=== PATIENT | female | born 1945 | race Caucasian/White ===

== ENCOUNTER 2017-11-27 06:35 | Inpatient (IN) | payer MEDICARE ==
[2017-11-26 12:26] LABS: CLARITY,URINE SLIGHTLY CLOUDY (Clear); COLOR,URINE YELLOW (Yellow); GLUCOSE, URINE NEGATIVE (Neg); KETONES,URINE NEGATIVE (Neg); LEUKOCYTE ESTERASE ,URINE LARGE (Neg); NITRITES, URINE NEGATIVE (Neg); OCCULT BLOOD,URINE SMALL (Neg); PROTEIN,URINE NEGATIVE (Neg); UROBILINOGEN,URINE 0.2 E.U/dL (0.2-1.0)
[2017-11-26 12:29] LABS: UA COLLECTION TYPE CLN CATCH MIDSTREAM
[2017-11-26 12:32] LABS: BASOPHILS % (AUTO) 0.3 % (0-1); EOSINOPHILS # (AUTO) 0.2 X10'3 (0-0.9); EOSINOPHILS % (AUTO) 3.1 % (0-6); LYMPHOCYTES # (AUTO) 1.3 X10'3 (1.1-4.8); MEAN CORPUSCULAR HEMOGLOBIN 31.3 PG (27.0-31.0); MEAN CORPUSCULAR HGB CONC 34.6 % (33.0-36.5); MEAN CORPUSCULAR VOLUME 90.5 FL (78-98); MONOCYTES # (AUTO) 0.5 X10'3 (0-0.9); MONOCYTES % (AUTO) 6.1 % (2-12); NEUTROPHILS # (AUTO) 5.7 X10'3 (1.8-7.7); NEUTROPHILS % (AUTO) 73.5 % (42-75); PRE OP HEMATOCRIT 39.9 % (35.0-45.0); PRE OP HEMOGLOBIN 13.8 g/dL (12.0-16.0); PRE OP PLATELET COUNT 229 X10'3 (140-440); RED BLOOD COUNT 4.41 X10'6 (4.20-5.60); RED CELL DISTRIBUTION WIDTH 15.7 % (11.5-14.5)
[2017-11-26 12:33] LABS: BACTERIA,URINE 4+ /HPF (Neg); RBC,URINE 0-2 /HPF (0-2); SQUAMOUS EPITHELIAL CELL,UR FEW /LPF (FEW); WBC,URINE 30-50 /HPF (0-4)
[2017-11-26 12:34] LABS: MUCUS STRANDS FEW /LPF (Neg); TRANSITIONAL EPI CELLS,URINE FEW /HPF; WBC CLUMPS,URINE FEW /HPF (NEGATIVE)
[2017-11-26 12:35] LABS: PRE OP PROTIME 10.4 SECONDS (9.0-12.0)
[2017-11-26 12:40] LABS: ALBUMIN 3.9 G/DL (3.4-5.0); ALKALINE PHOSPHATASE 89 IU/L (46-116); BLOOD UREA NITROGEN 13 MG/DL (7-18); BUN/CREATININE RATIO 15.3 (6.6-38.0); CHLORIDE 98 MMOL/L (99-107); CREATININE 0.85 MG/DL (0.40-0.90); PRE OP ALT 39 U/L (30-65); PRE OP ANION GAP 9 (8-16); PRE OP AST 26 U/L (10-37); PRE OP BILIRUB, TOTAL 1.1 MG/DL (0.0-1.0); PRE OP GLUCOSE 89 MG/DL (70-104); PRE OP POTASSIUM 4.2 MMOL/L (3.4-5.1); PRE OP SODIUM 134 MMOL/L (135-145); TOTAL CARBON DIOXIDE 27.4 MMOL/L (24-32); TOTAL PROTEIN 7.7 G/DL (6.4-8.2); eGFR 66 ML/MIN
[~2017-11-27] VITALS: Ht 167.6 cm; Wt 56.0 kg
[~2017-11-27 06:35] MED LIST: IPRA3AMP31 INH; LACTC PO; albuterol 2.5 MG/3 ML nebule NEB ONE; ceFOXitin 2 GM ADDvantage bag 100 ML IV ONE; famotidine 20mg tablet PO ONE; ringers solution, lacted 1,000 ML IV SCH
[2017-11-27] MEDS ORDERED: clindamycin phosphate 150mg/ml inj. ONE (06:43)
[2017-11-27] MEDS ORDERED: gentamicin 40 MG/1 ML inj ONE (06:43)
[2017-11-27] MEDS ORDERED: LIDOcaine 1% (10mg/ml) 2ml vial ONE (07:12)
[2017-11-27 08:02] VITALS: BP 141/80
[2017-11-27 08:05] VITALS: BP 141/80
== END 2017-11-28 00:04 | disposition home or self-care (01) | DRG 395 ==
LOC: PAS IN 06:35 → EDSTATUS 08:30
PROVIDERS: ADMIT Surgery; ATTEND Surgery
DX: K43.2 Incisional hernia without obstruction or gangrene (principal); Z53.8 Procedure and treatment not carried out for other reasons; I48.2 Chronic atrial fibrillation; I10 Essential (primary) hypertension; Z87.891 Personal history of nicotine dependence
CPT/HCPCS: 36415; 80053; 81001; 85025; 85610; 85730; 86885; 86900; 86901; 87070; 87077; 87088; 87186; 93005; J0694; J1580; J3490; J7120

== ENCOUNTER 2017-12-02 15:15 | Inpatient (IN) | payer MEDICARE ==
[~2017-12-02] VITALS: Ht 167.6 cm; Wt 57.9 kg
[~2017-12-02 15:15] MED LIST changes: -albuterol 2.5 MG/3 ML nebule NEB ONE; -ceFOXitin 2 GM ADDvantage bag 100 ML IV ONE; -famotidine 20mg tablet PO ONE; -ringers solution, lacted 1,000 ML IV SCH
[2017-12-04] VITALS (21 sets, daily range): BP systolic 139–201; BP diastolic 70–104
[2017-12-04] MEDS ORDERED: ringers solution, lacted 1,000 ML IV SCH ×2 (05:00→14:18)
[2017-12-04] MEDS ORDERED: famotidine 20mg tablet PO ONE (05:30)
[2017-12-04] MEDS ORDERED: ceFOXitin 2 GM ADDvantage bag 100 ML IV ONE (05:30)
[2017-12-04] MEDS ORDERED: albuterol 2.5 MG/3 ML nebule NEB ONE (05:30)
[2017-12-04] MEDS ORDERED: LIDOcaine 1% (10mg/ml) 2ml vial ONE (08:58)
[2017-12-04] MEDS ORDERED: clindamycin phosphate 150mg/ml inj. ONE (10:53)
[2017-12-04] MEDS ORDERED: gentamicin 40 MG/1 ML inj ONE (10:53)
[2017-12-04] MEDS ORDERED: midazolam 2 mg/2 ml injection ONE (11:19)
[2017-12-04] MEDS ORDERED: fentaNYL /PF 50mcg/ml 5ml ampule ONE (11:19)
[2017-12-04] MEDS ORDERED: LIDOcaine 2% (20mg/ml) 5ml vial ONE (11:21)
[2017-12-04] MEDS ORDERED: propofol inj 20 ML IV ONE (11:21)
[2017-12-04] MEDS ORDERED: cloNIDine hcl/PF 100mcg/ml inj ONE (11:23)
[2017-12-04] MEDS ORDERED: BUPIVAcaine/PF 2.5mg/ml (0.25%) 10ml vial ONE (11:24)
[2017-12-04] MEDS ORDERED: dexamethasone sod phosphate 4mg/ml inj. ONE (11:28)
[2017-12-04] MEDS ORDERED: sevoflurane 250ml liquid IH ONE (11:37)
[2017-12-04] MEDS ORDERED: [UNRECOGNIZED DRUG - OTHER] IV ONE (11:37)
[2017-12-04] MEDS ORDERED: DEXTRAN IV ONE (11:37)
[2017-12-04] MEDS ORDERED: morphine 4 MG/ML inj SYRINge IV PRN (14:20)
[2017-12-04] MEDS ORDERED: HYDROmorphone inj. 0.5 MG/0.5 ML DISP.SYRIN IV PRN ×2 (14:20)
[2017-12-04] MEDS ORDERED: ondansetron/PF 4mg/2ml inj IV PRN (14:20)
[2017-12-04] MEDS ORDERED: HYDROmorphone 1 mg/ml syringe ONE (14:25)
[2017-12-04] MEDS ORDERED: acetaminophen 1,000mg/100ml IV 100 ML IV ONE (14:38)
[2017-12-04] MEDS ORDERED: ondansetron/PF 4mg/2ml inj ONE (14:57)
[2017-12-04] MEDS ORDERED: neostigmine methylsulfate 1 MG/ML 10ml vial ONE (14:57)
[2017-12-04] MEDS ORDERED: glycopyrrolate 0.2mg/ml inj ONE (14:57)
[2017-12-04] MEDS ORDERED: hydrALAZINE 20mg/ml inj. IV ONE (15:00)
[2017-12-04] MEDS: ceFAZolin inj. 1,000 MG in dextrose 5%-water 50ml 50 ML IV SCH ×2 (17:37→23:26)
[2017-12-04] MEDS: HYDROmorphone 1 mg/ml syringe IV PRN ×2 (17:39→21:59)
[2017-12-04] MEDS: Potassium Cl inj 20 MEQ in ringers solution, lacted 1,000 ML IV SCH (19:52)
[2017-12-04] MEDS: clindamycin 600mg/D5W 50ml 50 ML IV SCH (19:53)
[2017-12-05] VITALS: BP 166/83
[2017-12-05] MEDS: clindamycin 600mg/D5W 50ml 50 ML IV SCH ×4 (01:41→19:29)
[2017-12-05] MEDS: HYDROmorphone 1 mg/ml syringe IV PRN ×5 (02:39→20:58)
[2017-12-05 04:00] VITALS: BP 149/69
[2017-12-05] MEDS: Potassium Cl inj 20 MEQ in ringers solution, lacted 1,000 ML IV SCH ×3 (05:20→23:48)
[2017-12-05 05:59] LABS: BASOPHILS % (AUTO) 0.1 % (0-1); EOSINOPHILS # (AUTO) 0.1 X10'3 (0-0.9); EOSINOPHILS % (AUTO) 0.8 % (0-6); HEMATOCRIT 38.1 % (35.0-45.0); HEMOGLOBIN 12.9 g/dl (12.0-16.0); LYMPHOCYTES # (AUTO) 1.4 X10'3 (1.1-4.8); LYMPHOCYTES % (AUTO) 13.1 % (21-51); MEAN CORPUSCULAR HGB CONC 33.9 % (33.0-36.5); MEAN CORPUSCULAR VOLUME 91.4 FL (78-98); MEAN PLATELET VOLUME 6.9 FL (7.4-10.4); MONOCYTES # (AUTO) 0.5 X10'3 (0-0.9); MONOCYTES % (AUTO) 4.8 % (2-12); NEUTROPHILS # (AUTO) 8.4 X10'3 (1.8-7.7); NEUTROPHILS % (AUTO) 81.2 % (42-75); PLATELET COUNT 220 X10'3 (140-440); RED BLOOD COUNT 4.17 X10'6 (4.20-5.60); RED CELL DISTRIBUTION WIDTH 15.4 % (11.5-14.5); WHITE BLOOD COUNT 10.4 X10'3 (4.5-11.0)
[2017-12-05 06:04] LABS: ANION GAP 7 (8-16); BLOOD UREA NITROGEN 8 MG/DL (7-18); BUN/CREATININE RATIO 11.6 (6.6-38.0); CALCIUM 8.4 MG/DL (8.5-10.1); CHLORIDE 101 MMOL/L (99-107); CREATININE 0.69 MG/DL (0.40-0.90); GLUCOSE 118 MG/DL (70-104); POTASSIUM 4.3 MMOL/L (3.5-5.1); SODIUM 133 MMOL/L (135-145); TOTAL CARBON DIOXIDE 25.2 MMOL/L (24-32); eGFR 84 ML/MIN
[2017-12-05 07:11] VITALS: BP 143/72
[2017-12-05 11:53] VITALS: BP 129/68
[2017-12-05 20:00] VITALS: BP 153/76
[2017-12-05] MEDS: ondansetron/PF 4mg/2ml inj IV PRN (21:04)
[2017-12-05] MEDS ORDERED: HYDROmorphone/NS 1 mg/ml CADD 50 ML IV SCH (21:40)
[2017-12-05] MEDS ORDERED: naloxone 0.4 mg/ml inj IV PRN (21:45)
[2017-12-05] MEDS: HYDROmorphone/NS 1 mg/ml CADD 50 ML IV SCH (23:56)
[2017-12-06] VITALS: BP 169/81
[2017-12-06] MEDS: HYDROmorphone/NS 1 mg/ml CADD 50 ML IV SCH ×11 (01:00→23:00)
[2017-12-06] MEDS: clindamycin 600mg/D5W 50ml 50 ML IV SCH ×4 (01:12→19:29)
[2017-12-06 05:12] LABS: BASOPHILS % (AUTO) 0.3 % (0-1); EOSINOPHILS # (AUTO) 0.2 X10'3 (0-0.9); EOSINOPHILS % (AUTO) 1.6 % (0-6); HEMATOCRIT 35.7 % (35.0-45.0); HEMOGLOBIN 12.1 g/dl (12.0-16.0); LYMPHOCYTES # (AUTO) 1.2 X10'3 (1.1-4.8); LYMPHOCYTES % (AUTO) 11.8 % (21-51); MEAN CORPUSCULAR HGB CONC 33.8 % (33.0-36.5); MEAN CORPUSCULAR VOLUME 91.8 FL (78-98); MONOCYTES # (AUTO) 0.7 X10'3 (0-0.9); MONOCYTES % (AUTO) 6.8 % (2-12); NEUTROPHILS # (AUTO) 8.4 X10'3 (1.8-7.7); NEUTROPHILS % (AUTO) 79.5 % (42-75); PLATELET COUNT 215 X10'3 (140-440); RED BLOOD COUNT 3.89 X10'6 (4.20-5.60); RED CELL DISTRIBUTION WIDTH 15.6 % (11.5-14.5); WHITE BLOOD COUNT 10.5 X10'3 (4.5-11.0)
[2017-12-06 05:41] LABS: ALBUMIN 2.6 G/DL (3.4-5.0); ANION GAP 7 (8-16); BLOOD UREA NITROGEN 6 MG/DL (7-18); BUN/CREATININE RATIO 9.4 (6.6-38.0); CALCIUM 8.3 MG/DL (8.5-10.1); CHLORIDE 99 MMOL/L (99-107); CREATININE 0.64 MG/DL (0.40-0.90); GLUCOSE 97 MG/DL (70-104); POTASSIUM 4.1 MMOL/L (3.5-5.1); SODIUM 133 MMOL/L (135-145); TOTAL CARBON DIOXIDE 27.1 MMOL/L (24-32); eGFR > 90 ML/MIN
[2017-12-06 07:00] VITALS: BP 152/86
[2017-12-06] MEDS: Potassium Cl inj 20 MEQ in ringers solution, lacted 1,000 ML IV SCH (09:26)
[2017-12-06] MEDS: ondansetron/PF 4mg/2ml inj IV PRN ×2 (11:50→21:06)
[2017-12-06 12:00] VITALS: BP 151/100
[2017-12-06] MEDS: potassium CL 20mEq in D5-1/2NS 1,000 ML IV SCH (17:51)
[2017-12-06 18:00] VITALS: BP 189/88
[2017-12-06] MEDS: hydrALAZINE 20mg/ml inj. IV PRN (19:29)
[2017-12-06 20:30] VITALS: BP 153/79
[2017-12-06] MEDS: benzocaine/menthol oral lozeng 1 EACH BOX MM PRN ×2 (20:31→22:04)
[2017-12-07] VITALS: BP 158/82
[2017-12-07] MEDS: benzocaine/menthol oral lozeng 1 EACH BOX MM PRN ×3 (00:18→21:08)
[2017-12-07] MEDS: HYDROmorphone/NS 1 mg/ml CADD 50 ML IV SCH ×6 (01:00→11:00)
[2017-12-07] MEDS: clindamycin 600mg/D5W 50ml 50 ML IV SCH ×5 (01:29→19:19)
[2017-12-07] MEDS: potassium CL 20mEq in D5-1/2NS 1,000 ML IV SCH (03:48)
[2017-12-07 05:12] LABS: BASOPHILS % (AUTO) 0.3 % (0-1); EOSINOPHILS # (AUTO) 0.2 X10'3 (0-0.9); EOSINOPHILS % (AUTO) 1.4 % (0-6); HEMATOCRIT 37.1 % (35.0-45.0); HEMOGLOBIN 12.4 g/dl (12.0-16.0); LYMPHOCYTES # (AUTO) 1.3 X10'3 (1.1-4.8); LYMPHOCYTES % (AUTO) 11.4 % (21-51); MEAN CORPUSCULAR HGB CONC 33.4 % (33.0-36.5); MEAN CORPUSCULAR VOLUME 92.8 FL (78-98); MEAN PLATELET VOLUME 7.2 FL (7.4-10.4); MONOCYTES # (AUTO) 0.9 X10'3 (0-0.9); MONOCYTES % (AUTO) 7.9 % (2-12); NEUTROPHILS # (AUTO) 9.1 X10'3 (1.8-7.7); PLATELET COUNT 214 X10'3 (140-440); RED CELL DISTRIBUTION WIDTH 15.5 % (11.5-14.5); WHITE BLOOD COUNT 11.5 X10'3 (4.5-11.0)
[2017-12-07 05:34] LABS: ALBUMIN 2.5 G/DL (3.4-5.0); ANION GAP 3 (8-16); BLOOD UREA NITROGEN 4 MG/DL (7-18); BUN/CREATININE RATIO 6.6 (6.6-38.0); CALCIUM 8.2 MG/DL (8.5-10.1); CHLORIDE 95 MMOL/L (99-107); CREATININE 0.61 MG/DL (0.40-0.90); GLUCOSE 116 MG/DL (70-104); POTASSIUM 3.6 MMOL/L (3.5-5.1); SODIUM 129 MMOL/L (135-145); TOTAL CARBON DIOXIDE 30.6 MMOL/L (24-32); eGFR > 90 ML/MIN
[2017-12-07 07:00] VITALS: BP 191/91
[2017-12-07] MEDS: hydrALAZINE 20mg/ml inj. IV PRN (07:39)
[2017-12-07] MEDS: ondansetron/PF 4mg/2ml inj IV PRN (08:16)
[2017-12-07 10:07] VITALS: BP 147/75
[2017-12-07 11:30] VITALS: BP 137/69
[2017-12-07] MEDS ORDERED: ketorolac tromethamine 15mg/ml inj. IV ONE (11:30)
[2017-12-07] MEDS: ketorolac tromethamine 15mg/ml inj. IV SCH ×3 (11:30→19:19)
[2017-12-07] MEDS: potassium Cl 20mEq in D5-NS 1,000 ML IV SCH ×2 (12:07→19:55)
[2017-12-07] MEDS: fentaNYL 10MCG/ML in NS 50ML 50 ML IV SCH ×4 (12:44→18:57)
[2017-12-07] MEDS: CADD PCA waste documentation MC SCH (12:48)
[2017-12-07] MEDS ORDERED: clindamycin 600mg/D5W 50ml 50 ML IV ONE (15:00)
[2017-12-07] MEDS ORDERED: FENTANYL IV SCH (15:00)
[2017-12-07] MEDS ORDERED: [UNRECOGNIZED DRUG - OTHER] IV SCH (15:00)
[2017-12-07] MEDS ORDERED: proMETHazine 25mg rectal suppository RC PRN (15:05)
[2017-12-07] MEDS ORDERED: methylnaltrexone br 12mg/0.6ml inj***SubQ only SQ ONE (15:10)
[2017-12-07 18:00] VITALS: BP 158/86
[2017-12-07 23:57] VITALS: BP 153/72
[2017-12-08] MEDS: fentaNYL 10MCG/ML in NS 50ML 50 ML IV SCH ×10 (00:21→22:39)
[2017-12-08] MEDS: CADD PCA waste documentation MC SCH ×2 (00:40→14:18)
[2017-12-08] MEDS: clindamycin 600mg/D5W 50ml 50 ML IV SCH ×4 (01:49→21:06)
[2017-12-08] MEDS: ketorolac tromethamine 15mg/ml inj. IV SCH ×4 (01:54→21:05)
[2017-12-08 05:28] LABS: BASOPHILS % (AUTO) 0.2 % (0-1); EOSINOPHILS # (AUTO) 0.3 X10'3 (0-0.9); HEMATOCRIT 32.1 % (35.0-45.0); HEMOGLOBIN 10.7 g/dl (12.0-16.0); LYMPHOCYTES # (AUTO) 0.9 X10'3 (1.1-4.8); LYMPHOCYTES % (AUTO) 8.6 % (21-51); MEAN CORPUSCULAR HEMOGLOBIN 30.7 PG (27.0-31.0); MEAN CORPUSCULAR HGB CONC 33.4 % (33.0-36.5); MEAN CORPUSCULAR VOLUME 91.9 FL (78-98); MEAN PLATELET VOLUME 7.2 FL (7.4-10.4); MONOCYTES # (AUTO) 0.6 X10'3 (0-0.9); MONOCYTES % (AUTO) 6.3 % (2-12); NEUTROPHILS # (AUTO) 8.1 X10'3 (1.8-7.7); NEUTROPHILS % (AUTO) 81.9 % (42-75); PLATELET COUNT 212 X10'3 (140-440); RED CELL DISTRIBUTION WIDTH 15.4 % (11.5-14.5); WHITE BLOOD COUNT 9.9 X10'3 (4.5-11.0)
[2017-12-08 05:42] LABS: ALBUMIN 2.3 G/DL (3.4-5.0); ANION GAP 5 (8-16); BLOOD UREA NITROGEN 8 MG/DL (7-18); BUN/CREATININE RATIO 12.3 (6.6-38.0); CALCIUM 7.9 MG/DL (8.5-10.1); CHLORIDE 100 MMOL/L (99-107); CREATININE 0.65 MG/DL (0.40-0.90); GLUCOSE 124 MG/DL (70-104); POTASSIUM 3.4 MMOL/L (3.5-5.1); SODIUM 133 MMOL/L (135-145); TOTAL CARBON DIOXIDE 28.5 MMOL/L (24-32); eGFR 90 ML/MIN
[2017-12-08] MEDS: potassium Cl 20mEq in D5-NS 1,000 ML IV SCH ×2 (07:19→17:01)
[2017-12-08 07:31] VITALS: BP 150/80
[2017-12-08 11:51] VITALS: BP 152/68
[2017-12-08 18:45] VITALS: BP 193/91
[2017-12-08] MEDS: hydrALAZINE 20mg/ml inj. IV PRN (19:18)
[2017-12-08] MEDS ORDERED: magnesium 1gm/100ml D5W IVPB 100 ML IV PRN (19:40)
[2017-12-08] MEDS ORDERED: magnesium 4gm in 100ml NS 100 ML IV PRN (19:40)
[2017-12-08] MEDS ORDERED: potassium Cl 20 mEq SR tablet PO PRN ×2 (19:40)
[2017-12-08] MEDS ORDERED: potassium Cl 40MEQ/NS 500ml 500 ML IV PRN ×2 (19:40)
[2017-12-08] MEDS ORDERED: magnesium Cl slow-release 64mg tablet PO PRN (19:40)
[2017-12-08] MEDS ORDERED: metoclopramide 5 mg/ml inj IV SCH (20:00)
[2017-12-08] MEDS: metoclopramide 5 mg/ml inj IV SCH (21:06)
[2017-12-08 23:00] VITALS: BP 136/76
[2017-12-09] MEDS: fentaNYL 10MCG/ML in NS 50ML 50 ML IV SCH ×3 (01:00→04:28)
[2017-12-09] MEDS: ketorolac tromethamine 15mg/ml inj. IV SCH ×2 (01:42→07:26)
[2017-12-09] MEDS: metoclopramide 5 mg/ml inj IV SCH ×4 (01:42→20:45)
[2017-12-09] MEDS: clindamycin 600mg/D5W 50ml 50 ML IV SCH ×4 (01:43→20:45)
[2017-12-09] MEDS: potassium Cl 20mEq in D5-NS 1,000 ML IV SCH (01:47)
[2017-12-09] MEDS: CADD PCA waste documentation MC SCH ×2 (04:22→11:02)
[2017-12-09 05:25] LABS: BASOPHILS % (AUTO) 0.3 % (0-1); EOSINOPHILS # (AUTO) 0.3 X10'3 (0-0.9); EOSINOPHILS % (AUTO) 4.6 % (0-6); HEMATOCRIT 29.4 % (35.0-45.0); HEMOGLOBIN 9.9 g/dl (12.0-16.0); LYMPHOCYTES # (AUTO) 0.9 X10'3 (1.1-4.8); LYMPHOCYTES % (AUTO) 12.2 % (21-51); MEAN CORPUSCULAR HGB CONC 33.8 % (33.0-36.5); MEAN CORPUSCULAR VOLUME 91.6 FL (78-98); MONOCYTES # (AUTO) 0.6 X10'3 (0-0.9); MONOCYTES % (AUTO) 7.7 % (2-12); NEUTROPHILS # (AUTO) 5.7 X10'3 (1.8-7.7); NEUTROPHILS % (AUTO) 75.2 % (42-75); PLATELET COUNT 212 X10'3 (140-440); RED BLOOD COUNT 3.21 X10'6 (4.20-5.60); RED CELL DISTRIBUTION WIDTH 15.4 % (11.5-14.5); WHITE BLOOD COUNT 7.6 X10'3 (4.5-11.0)
[2017-12-09 05:48] LABS: ALBUMIN 2.2 G/DL (3.4-5.0); ANION GAP 7 (8-16); BLOOD UREA NITROGEN 7 MG/DL (7-18); BUN/CREATININE RATIO 11.3 (6.6-38.0); CALCIUM 7.9 MG/DL (8.5-10.1); CHLORIDE 106 MMOL/L (99-107); CREATININE 0.62 MG/DL (0.40-0.90); GLUCOSE 114 MG/DL (70-104); MAGNESIUM 1.5 MG/DL (1.5-2.4); POTASSIUM 4.2 MMOL/L (3.5-5.1); SODIUM 138 MMOL/L (135-145); TOTAL CARBON DIOXIDE 25.2 MMOL/L (24-32); eGFR > 90 ML/MIN
[2017-12-09 07:22] VITALS: BP 161/96
[2017-12-09] MEDS: enoxaparin 40mg/0.4ml syringe SUBCUT SCH (07:26)
[2017-12-09] MEDS ORDERED: HYDROcodone/acetaminophen 10/325mg tab PO PRN (10:35)
[2017-12-09 11:15] VITALS: BP 148/81
[2017-12-09] MEDS: hydrALAZINE 20mg/ml inj. IV PRN (18:51)
[2017-12-09 20:00] VITALS: BP 183/78
[2017-12-09] MEDS: HYDROcodone/acetaminophen 10/325mg tab PO PRN (20:44)
[2017-12-09] MEDS: benzocaine/menthol oral lozeng 1 EACH BOX MM PRN (20:44)
[2017-12-09] MEDS: diphenhydrAMINE 25mg capsule PO PRN (20:45)
[2017-12-10] VITALS: BP 183/85
[2017-12-10] MEDS: hydrALAZINE 20mg/ml inj. IV PRN (00:05)
[2017-12-10] MEDS: benzocaine/menthol oral lozeng 1 EACH BOX MM PRN (00:40)
[2017-12-10] MEDS: diphenhydrAMINE 25mg capsule PO PRN ×2 (02:16→08:28)
[2017-12-10] MEDS: metoclopramide 5 mg/ml inj IV SCH ×3 (02:16→14:00)
[2017-12-10] MEDS: clindamycin 600mg/D5W 50ml 50 ML IV SCH ×3 (02:16→14:00)
[2017-12-10] MEDS: HYDROcodone/acetaminophen 10/325mg tab PO PRN ×2 (02:19→08:05)
[2017-12-10 05:09] LABS: MAGNESIUM 1.3 MG/DL (1.5-2.4); POTASSIUM 3.5 MMOL/L (3.5-5.1)
[2017-12-10 07:22] VITALS: BP 149/65
[2017-12-10] MEDS: enoxaparin 40mg/0.4ml syringe SUBCUT SCH (08:06)
[2017-12-10] MEDS ORDERED: HYDR-565 PO (11:27)
[2017-12-10] MEDS ORDERED: CLIN300C3 PO (11:27)
[2017-12-10 12:00] VITALS: BP 151/73
== END 2017-12-10 14:38 | disposition home or self-care (01) | DRG 354 ==
LOC: EDSTATUS 15:15 → PAS IN 12-04 08:43 → SUR 3N 12-04 15:46
PROVIDERS: ADMIT Surgery; ATTEND Surgery
PROC: 3E0T3BZ Introduction of Anesthetic Agent into Peripheral Nerves and Plexi, Percutaneous Approach (ICD-10-PCS; 2017-12-04)
PROC: 0JN80ZZ Release Abdomen Subcutaneous Tissue and Fascia, Open Approach (ICD-10-PCS; 2017-12-04)
PROC: 0WUF0JZ Supplement Abdominal Wall with Synthetic Substitute, Open Approach (ICD-10-PCS; principal; 2017-12-04 11:37)
DX: K43.2 Incisional hernia without obstruction or gangrene (principal); E87.1 Hypo-osmolality and hyponatremia; K56.7 Ileus, unspecified; K66.0 Peritoneal adhesions (postprocedural) (postinfection); J44.9 Chronic obstructive pulmonary disease, unspecified; I10 Essential (primary) hypertension; Z90.49 Acquired absence of other specified parts of digestive tract; Z85.828 Personal history of other malignant neoplasm of skin; Z90.710 Acquired absence of both cervix and uterus
CPT/HCPCS: 36415; 80048; 83735; 84132; 85025; 86885; 86900; 86901; 88302; 94640; A6212; A6213; A6222; A6251; A6258; A6446; A7000; C1758; C1781; J0131; J0360; J0690; J0694; J0735; J1100; J1170; J1580; J1650; J1885; J2001; J2250; J2270; J2405; J2704; J2710; J2765; J3010; J3480; J3490; J7060; J7100; J7120; Q0163

== ENCOUNTER 2018-02-09 17:14 | Inpatient (IN) | payer MEDICARE ==
[~2018-02-09] VITALS: Ht 167.6 cm; Wt 51.0 kg
[2018-02-09 17:38] LABS: BASOPHILS # (AUTO) 0.1 X10'3 (0-0.2); BASOPHILS % (AUTO) 0.8 % (0-1); EOSINOPHILS # (AUTO) 0.3 X10'3 (0-0.9); EOSINOPHILS % (AUTO) 4.3 % (0-6); HEMATOCRIT 36.2 % (35.0-45.0); HEMOGLOBIN 12.7 g/dl (12.0-16.0); LYMPHOCYTES # (AUTO) 1.9 X10'3 (1.1-4.8); LYMPHOCYTES % (AUTO) 30.2 % (21-51); MEAN CORPUSCULAR HEMOGLOBIN 32.1 PG (27.0-31.0); MEAN CORPUSCULAR VOLUME 91.8 FL (78-98); MONOCYTES # (AUTO) 0.5 X10'3 (0-0.9); MONOCYTES % (AUTO) 8.7 % (2-12); NEUTROPHILS # (AUTO) 3.5 X10'3 (1.8-7.7); PLATELET COUNT 250 X10'3 (140-440); RED BLOOD COUNT 3.94 X10'6 (4.20-5.60); RED CELL DISTRIBUTION WIDTH 14.5 % (11.5-14.5); WHITE BLOOD COUNT 6.3 X10'3 (4.5-11.0)
[2018-02-09 17:47] LABS: PARTIAL THROMBOPLASTIN TIME 25 SECONDS (22-32); PROTHROMBIN TIME 10.2 SECONDS (9.0-12.0)
[2018-02-09 17:59] LABS: CLARITY,URINE CLEAR (Clear); COLOR,URINE STRAW (Yellow); GLUCOSE, URINE NEGATIVE (Neg); KETONES,URINE NEGATIVE (Neg); LEUKOCYTE ESTERASE ,URINE NEGATIVE (Neg); NITRITES, URINE NEGATIVE (Neg); OCCULT BLOOD,URINE NEGATIVE (Neg); PROTEIN,URINE NEGATIVE (Neg); UROBILINOGEN,URINE 0.2 E.U/dL (0.2-1.0)
[2018-02-09 18:01] LABS: UA COLLECTION TYPE CLN CATCH MIDSTREAM
[2018-02-09 18:07] LABS: ALANINE AMINOTRANSFERASE 29 U/L (12-78); ALBUMIN 4.1 G/DL (3.4-5.0); ALBUMIN/GLOBULIN RATIO 1.2 (1.1-1.5); ALKALINE PHOSPHATASE 81 IU/L (46-116); ANION GAP 9 (8-16); ASPARTATE AMINO TRANSFERASE 21 U/L (10-37); BILIRUBIN,TOTAL 0.9 MG/DL (0.1-1.0); BLOOD UREA NITROGEN 14 MG/DL (7-18); BUN/CREATININE RATIO 17.3 (6.6-38.0); CALCIUM 8.9 MG/DL (8.5-10.1); CHLORIDE 98 MMOL/L (99-107); CREATININE 0.81 MG/DL (0.40-0.90); GLUCOSE 92 MG/DL (70-104); POTASSIUM 4.5 MMOL/L (3.5-5.1); SODIUM 136 MMOL/L (135-145); TOTAL CARBON DIOXIDE 28.6 MMOL/L (24-32); TOTAL PROTEIN 7.6 G/DL (6.4-8.2); eGFR 70 ML/MIN
[2018-02-09 18:16] LABS: MAGNESIUM 1.9 MG/DL (1.5-2.4); PHOSPHORUS 3.5 MG/DL (2.3-4.5)
[2018-02-09] MEDS ORDERED: atorvastatin 20mg tablet PO ONE (18:50)
[2018-02-09] MEDS ORDERED: aspirin 325mg tablet PO ONE (18:50)
[2018-02-09] MEDS ORDERED: aspirin 81mg tab.chew PO ONE (18:55)
[2018-02-09] MEDS ORDERED: mag hydrox/Alum hydrox/simeth 30ml oral suspension PO PRN (19:35)
[2018-02-09] MEDS ORDERED: acetaminophen 325mg tablet PO PRN (19:35)
[2018-02-09] MEDS ORDERED: magnesium hydroxide 30ml (MOM) UD suspension PO PRN (19:35)
[2018-02-09] MEDS: heparin, porcine 5000 units/ml vial SQ SCH (20:33)
[2018-02-09 20:45] VITALS: BP 195/92
[2018-02-09] MEDS: metroNIDAZOLE 500mg tablet PO SCH (21:07)
[2018-02-09] MEDS: levoFLOXACIN 250mg tablet PO SCH (21:07)
[2018-02-10] VITALS (7 sets, daily range): BP systolic 124–211; BP diastolic 66–107
[2018-02-10] MEDS: HYDROcodone/acetaminophen 5mg/325mg tablet PO PRN ×2 (00:06→05:17)
[2018-02-10] MEDS: hydrALAZINE 20mg/ml inj. IV PRN ×3 (00:09→23:31)
[2018-02-10] MEDS: ondansetron/PF 4mg/2ml inj IV PRN ×4 (02:16→20:39)
[2018-02-10 06:18] LABS: CHOL/HDL RATIO 1.8 (0.00-4.99); CHOLESTEROL 198 MG/DL (0-200); HDL CHOLESTEROL 110 MG/DL (35-60); LDL CHOLESTEROL 71 MG/DL (50-100); TRIGLYCERIDES 48 MG/DL (20-135)
[2018-02-10] MEDS ORDERED: aspirin 81mg tablet.DR PO SCH (08:00)
[2018-02-10] MEDS: metroNIDAZOLE 500mg tablet PO SCH ×3 (08:05→21:00)
[2018-02-10] MEDS: heparin, porcine 5000 units/ml vial SQ SCH ×2 (08:07→20:00)
[2018-02-10] MEDS ORDERED: morphine 2 MG/ML inj. syringe IV PRN (11:30)
[2018-02-10] MEDS: normal saline 1000ml 1,000 ML IV SCH (14:21)
[2018-02-10] MEDS: diatr meglu/diatrizoate 30ml oral sol.-(3 dose) bottle PO SCH ×3 (14:26→20:40)
[2018-02-10 14:27] LABS: BASOPHILS % (AUTO) 0.5 % (0-1); EOSINOPHILS % (AUTO) 0.5 % (0-6); HEMATOCRIT 39.2 % (35.0-45.0); HEMOGLOBIN 13.7 g/dl (12.0-16.0); LYMPHOCYTES # (AUTO) 1.2 X10'3 (1.1-4.8); LYMPHOCYTES % (AUTO) 15.8 % (21-51); MEAN CORPUSCULAR HEMOGLOBIN 32.6 PG (27.0-31.0); MEAN PLATELET VOLUME 7.1 FL (7.4-10.4); MONOCYTES # (AUTO) 0.2 X10'3 (0-0.9); MONOCYTES % (AUTO) 3.2 % (2-12); NEUTROPHILS # (AUTO) 6.3 X10'3 (1.8-7.7); PLATELET COUNT 255 X10'3 (140-440); RED BLOOD COUNT 4.21 X10'6 (4.20-5.60); RED CELL DISTRIBUTION WIDTH 14.6 % (11.5-14.5); WHITE BLOOD COUNT 7.7 X10'3 (4.5-11.0)
[2018-02-10 14:31] LABS: ALANINE AMINOTRANSFERASE 27 U/L (12-78); ALBUMIN 3.9 G/DL (3.4-5.0); ALBUMIN/GLOBULIN RATIO 1.1 (1.1-1.5); ALKALINE PHOSPHATASE 85 IU/L (46-116); ANION GAP 10 (8-16); ASPARTATE AMINO TRANSFERASE 20 U/L (10-37); BILIRUBIN,TOTAL 1.3 MG/DL (0.1-1.0); BLOOD UREA NITROGEN 15 MG/DL (7-18); BUN/CREATININE RATIO 18.1 (6.6-38.0); CALCIUM 8.8 MG/DL (8.5-10.1); CHLORIDE 97 MMOL/L (99-107); CREATININE 0.83 MG/DL (0.40-0.90); GLUCOSE 123 MG/DL (70-104); POTASSIUM 3.8 MMOL/L (3.5-5.1); SODIUM 135 MMOL/L (135-145); TOTAL CARBON DIOXIDE 27.8 MMOL/L (24-32); TOTAL PROTEIN 7.6 G/DL (6.4-8.2); eGFR 68 ML/MIN
[2018-02-10] MEDS: morphine 2 MG/ML inj. syringe IV PRN ×2 (19:45→23:33)
[2018-02-10] MEDS: lactobacillus rhamnosus 10,000 MMU CELLS/CAPSULE PO SCH (19:58)
[2018-02-10] MEDS: levoFLOXACIN 250mg tablet PO SCH (22:00)
[2018-02-11] VITALS (7 sets, daily range): BP systolic 115–170; BP diastolic 61–79
[2018-02-11] MEDS: morphine 2 MG/ML inj. syringe IV PRN ×4 (04:22→22:30)
[2018-02-11] MEDS: ondansetron/PF 4mg/2ml inj IV PRN ×2 (04:29→10:29)
[2018-02-11] MEDS: lactobacillus rhamnosus 10,000 MMU CELLS/CAPSULE PO SCH ×2 (07:44→20:30)
[2018-02-11] MEDS: metroNIDAZOLE 500mg tablet PO SCH ×3 (07:44→20:30)
[2018-02-11] MEDS: amLODIPine 5mg tablet PO SCH (07:44)
[2018-02-11] MEDS: heparin, porcine 5000 units/ml vial SQ SCH ×2 (07:44→20:30)
[2018-02-11] MEDS: aspirin 325mg tablet, delayed-release (Ecotrin) PO SCH (07:45)
[2018-02-11] MEDS: normal saline 1000ml 1,000 ML IV SCH ×3 (10:15→17:55)
[2018-02-11] MEDS ORDERED: ibuprofen tablet 400 MG TABLET PO ONE ×3 (11:20→17:20)
[2018-02-11] MEDS: pantoprazole 40mg Tablet.DR PO SCH (11:28)
[2018-02-11] MEDS: levoFLOXACIN 250mg tablet PO SCH (22:34)
[2018-02-12 02:00] VITALS: BP 129/69
[2018-02-12 06:00] VITALS: BP 110/68
[2018-02-12 07:08] VITALS: BP 158/77
[2018-02-12] MEDS: morphine 2 MG/ML inj. syringe IV PRN (07:40)
[2018-02-12] MEDS: pantoprazole 40mg Tablet.DR PO SCH (08:18)
[2018-02-12] MEDS: aspirin 325mg tablet, delayed-release (Ecotrin) PO SCH (08:19)
[2018-02-12] MEDS: metroNIDAZOLE 500mg tablet PO SCH ×2 (08:19→13:16)
[2018-02-12] MEDS: lactobacillus rhamnosus 10,000 MMU CELLS/CAPSULE PO SCH (08:19)
[2018-02-12] MEDS: amLODIPine 5mg tablet PO SCH (08:19)
[2018-02-12] MEDS: heparin, porcine 5000 units/ml vial SQ SCH (08:22)
[2018-02-12 10:00] VITALS: BP 139/58
[2018-02-12] MEDS ORDERED: METR500T4 PO (11:25)
[2018-02-12] MEDS: normal saline 1000ml 1,000 ML IV SCH (11:59)
== END 2018-02-12 15:45 | disposition home health service (06) | DRG 392 ==
LOC: ER 17:15 → ED HOLD 19:35 → ORTHO 4S 20:45
PROVIDERS: ADMIT Internal Medicine; ATTEND Family Medicine
DX: K52.9 Noninfective gastroenteritis and colitis, unspecified (principal); I16.0 Hypertensive urgency; E11.9 Type 2 diabetes mellitus without complications; I11.0 Hypertensive heart disease with heart failure; I48.91 Unspecified atrial fibrillation; I50.9 Heart failure, unspecified; J44.9 Chronic obstructive pulmonary disease, unspecified; Z90.49 Acquired absence of other specified parts of digestive tract; Z85.118 Personal history of other malignant neoplasm of bronchus and lung; Z87.891 Personal history of nicotine dependence
CPT/HCPCS: 36415; 70450; 70544; 70547; 70551; 74176; 80053; 80061; 81003; 82330; 83735; 84100; 84439; 84443; 84484; 85025; 85610; 85651; 85730; 87070; 93005; 93306; 93880; 99285; J0360; J1644; J2270; J2405; J3490; J7030; Q9963

== ENCOUNTER 2021-08-29 10:07 | Day surgery (SDC) | payer MEDICARE ==
[2021-08-29] VITALS (10 sets, daily range): BP systolic 113–146; BP diastolic 54–101
[~2021-08-29 10:07] MED LIST changes: +FOLI-83 PO; +OLME40TA18 PO
[2021-08-29] MEDS ORDERED: midazolam 1 mg/ML 2ml injection ONE (10:25)
[2021-08-29] MEDS ORDERED: fentaNYL/PF 50MCG/1 ML 2ML syringe ONE (10:25)
[2021-08-29] MEDS ORDERED: LIDOCAINE 1% w/preservative (10 MG/ML) inj. 10mL VIAL ONE (10:25)
[2021-08-29] MEDS ORDERED: iohexol 350 MG/ML 50ML vial IV ONE (10:25)
[2021-08-29] MEDS ORDERED: iohexol 350MG/ML 100ml bottle IV ONE (10:26)
[2021-08-29] MEDS ORDERED: nitroGLYCERIN 0.4mg SUBLingual tab SL PRN ×2 (10:40→12:10)
[2021-08-29] MEDS ORDERED: normal saline 1,000 ML IV SCH (10:40)
[2021-08-29] MEDS ORDERED: LORazepam 0.5 MG tablet PO PRN (10:40)
[2021-08-29] MEDS ORDERED: diphenhydrAMINE 25mg capsule PO PRN (10:40)
[2021-08-29] MEDS ORDERED: AMLO2.5T5 PO (10:41)
[2021-08-29] MEDS ORDERED: METO50TA16 PO (10:41)
[2021-08-29] MEDS ORDERED: ESTR1VAG VG (10:41)
[2021-08-29] MEDS ORDERED: OMEG1CAP2 (10:45)
[2021-08-29] MEDS ORDERED: HYDROcodone/acetaminophen 10/325mg tab PO PRN (12:10)
[2021-08-29] MEDS ORDERED: OXAZEpam 15mg capsule PO PRN (12:10)
[2021-08-29] MEDS ORDERED: normal saline 1000ml 1,000 ML IV SCH (12:10)
[2021-08-29] MEDS ORDERED: proCHLORperazine 10 MG/2 ml inj IV PRN (12:10)
[2021-08-29] MEDS ORDERED: ondansetron/PF 4mg/2ml inj IV PRN (12:10)
[2021-08-29] MEDS ORDERED: HYDROcodone/acetaminophen 5mg/325mg tablet PO PRN (12:10)
== END 2021-08-29 18:05 | disposition home or self-care (01) ==
LOC: SSTAY O 10:07
PROVIDERS: ATTEND Internal Medicine Cardiovascular Disease
DX: R06.09 Other forms of dyspnea (principal); R94.39 Abnormal result of other cardiovascular function study; I25.10 Atherosclerotic heart disease of native coronary artery without angina pectoris; I10 Essential (primary) hypertension; I48.20 Chronic atrial fibrillation, unspecified; E78.5 Hyperlipidemia, unspecified; J44.9 Chronic obstructive pulmonary disease, unspecified; Z79.899 Other long term (current) drug therapy; Z90.2 Acquired absence of lung [part of]; Z90.49 Acquired absence of other specified parts of digestive tract; Z86.16 Personal history of COVID-19
CPT/HCPCS: 36415; 83880; 84484; 93458; 99152; 99153; C1760; C1769; J1644; J2250; J3010; J7030; Q0163; Q9967; A4620; A6258

== ENCOUNTER 2023-04-21 11:34 | Emergency (ER) | payer MEDICARE ==
[~2023-04-21] VITALS: Ht 165.1 cm; Wt 70.2 kg
[~2023-04-21 11:34] MED LIST changes: +AMLO2.5T5 PO; +ESTR1VAG10 VG; -FOLI-83 PO; -LACTC PO; +METO50TA16 PO; +OMEG1CAP2
[2023-04-21 11:53] VITALS: TEMP 98
[2023-04-21 12:22] LABS: BASOPHILS # (AUTO) 0.1 X10'3 (0-0.2); BASOPHILS % (AUTO) 0.8 % (0-1); EOSINOPHILS # (AUTO) 0.3 X10'3 (0-0.9); EOSINOPHILS % (AUTO) 3.5 % (0-6); HEMATOCRIT 43.1 % (35.0-45.0); HEMOGLOBIN 14.6 g/dl (12.0-16.0); LYMPHOCYTES # (AUTO) 1.4 X10'3 (1.1-4.8); LYMPHOCYTES % (AUTO) 14.3 % (21-51); MEAN CORPUSCULAR HEMOGLOBIN 32.8 PG (27.0-31.0); MEAN CORPUSCULAR HGB CONC 33.9 g/dL (33.0-36.5); MEAN CORPUSCULAR VOLUME 96.8 FL (78-98); MEAN PLATELET VOLUME 6.8 FL (7.4-10.4); MONOCYTES # (AUTO) 0.7 X10'3 (0-0.9); MONOCYTES % (AUTO) 7.2 % (2-12); NEUTROPHILS % (AUTO) 74.2 % (42-75); PLATELET COUNT 321 X10'3 (140-440); RED BLOOD COUNT 4.45 X10'6 (4.20-5.60); RED CELL DISTRIBUTION WIDTH 14.3 % (11.5-14.5); WHITE BLOOD COUNT 9.5 X10'3 (4.5-11.0)
[2023-04-21 12:31] LABS: ALANINE AMINOTRANSFERASE 27 U/L (12-78); ALBUMIN 3.8 G/DL (3.4-5.0); ALKALINE PHOSPHATASE 86 IU/L (46-116); ANION GAP 7 (8-16); ASPARTATE AMINO TRANSFERASE 18 U/L (10-37); BLOOD UREA NITROGEN 16 MG/DL (7-18); CALCIUM 8.9 MG/DL (8.5-10.1); CHLORIDE 98 MMOL/L (99-107); CREATININE 1.07 MG/DL (0.40-0.90); GLUCOSE 88 MG/DL (70-104); SODIUM 133 MMOL/L (135-145); TOTAL CARBON DIOXIDE 28.2 MMOL/L (24-32); TOTAL PROTEIN 7.5 G/DL (6.4-8.2); eCRCL 40 ML/MIN; eGFR 50 ML/MIN
[2023-04-21 12:38] LABS: PRO BRAIN NATRIURETIC PEPTIDE 438 PG/ML (0-450)
[2023-04-21] MEDS ORDERED: metoprolol tartrate 50mg tablet PO ONE (18:10)
[2023-04-21] MEDS ORDERED: ketorolac trometh inj. 60 MG/2 ML VIAL IM ONE (18:20)
[2023-04-21] MEDS ORDERED: ketorolac tromethamine 15mg/ml inj. IM ONE (18:20)
[2023-04-21 19:24] LABS: BILIRUBIN,URINE NEGATIVE (Neg); CLARITY,URINE CLEAR (Clear); COLOR,URINE YELLOW (Yellow); GLUCOSE, URINE NEGATIVE (Neg); KETONES,URINE 15 mg/dl (Neg); LEUKOCYTE ESTERASE ,URINE NEGATIVE (Neg); NITRITES, URINE NEGATIVE (Neg); OCCULT BLOOD,URINE NEGATIVE (Neg); PROTEIN,URINE NEGATIVE (Neg); UROBILINOGEN,URINE 0.2 E.U/dL (0.2-1.0)
[2023-04-21 19:25] LABS: UA COLLECTION TYPE CLN CATCH MIDSTREAM
[2023-04-21 21:45] VITALS: BP 187/124; PULSE 52; RESP 15; O2SAT 98
== END 2023-04-21 21:48 | disposition home or self-care (01) ==
LOC: ER 11:35
DX: I16.0 Hypertensive urgency (principal); I11.0 Hypertensive heart disease with heart failure; J44.9 Chronic obstructive pulmonary disease, unspecified; D64.9 Anemia, unspecified; Z98.890 Other specified postprocedural states; Z90.49 Acquired absence of other specified parts of digestive tract
CPT/HCPCS: 36415; 70450; 71045; 80053; 81003; 83880; 84484; 85025; 93005; 96372; 99285; J1885

== ENCOUNTER → 2024-10-05 | Day surgery (SDC) | payer MEDICARE ==
[2024-10-04 16:33] LABS: BASOPHILS # (AUTO) 0.1 X10'3 (0-0.2); BASOPHILS % (AUTO) 1.1 % (0-1); EOSINOPHILS # (AUTO) 0.2 X10'3 (0-0.9); EOSINOPHILS % (AUTO) 2.7 % (0-6); HEMATOCRIT 37.7 % (35.0-45.0); HEMOGLOBIN 12.6 g/dl (12.0-16.0); LYMPHOCYTES # (AUTO) 1.6 X10'3 (1.1-4.8); LYMPHOCYTES % (AUTO) 21.4 % (21-51); MEAN CORPUSCULAR HEMOGLOBIN 29.9 PG (27.0-31.0); MEAN CORPUSCULAR HGB CONC 33.3 g/dL (33.0-36.5); MEAN CORPUSCULAR VOLUME 89.8 FL (78-98); MEAN PLATELET VOLUME 6.5 FL (7.4-10.4); MONOCYTES # (AUTO) 0.6 X10'3 (0-0.9); MONOCYTES % (AUTO) 7.6 % (2-12); NEUTROPHILS # (AUTO) 5.1 X10'3 (1.8-7.7); NEUTROPHILS % (AUTO) 67.2 % (42-75); PLATELET COUNT 347 X10'3 (140-440); RED BLOOD COUNT 4.19 X10'6 (4.20-5.60); RED CELL DISTRIBUTION WIDTH 14.3 % (11.5-14.5); WHITE BLOOD COUNT 7.5 X10'3 (4.5-11.0)
[2024-10-04 16:47] LABS: APTT 32 SECONDS (22-32); INR 1.1 INR; PROTHROMBIN TIME 11.5 SECONDS (9.0-12.0)
[2024-10-04 16:51] LABS: ALBUMIN 3.4 G/DL (3.4-5.0); ANION GAP 8 (8-16); BLOOD UREA NITROGEN 14 MG/DL (7-18); BUN/CREATININE RATIO 12.7 (10.0-20.0); CALCIUM 8.4 MG/DL (8.5-10.1); CHLORIDE 91 MMOL/L (99-107); CHOLESTEROL 161 MG/DL (0-200); GLUCOSE 90 MG/DL (70-104); HDL CHOLESTEROL 80 MG/DL (35-60); LDL CHOLESTEROL 62 MG/DL (50-100); POTASSIUM 4.2 MMOL/L (3.5-5.1); SODIUM 125 MMOL/L (135-145); TOTAL CARBON DIOXIDE 25.6 MMOL/L (24-32); TRIGLYCERIDES 73 MG/DL (20-135); eGFR 48 ML/MIN
[~2024-10-05] VITALS: Ht 165.1 cm; Wt 59.9 kg
[~2024-10-05] MED LIST changes: -AMLO2.5T5 PO; +APIX5TAB3 PO; +BIOT5000 PO; +CHOL200012 PO; -IPRA3AMP31 INH; +IPRA3AMP9 NEB; +LEVO25TA2 PO; +METO-395 PO; -METO50TA16 PO; +MIDAZolam 1mg/ml 10ml vial IV ONE; -OLME40TA18 PO; -OMEG1CAP2; +OXYC1TAB17 PO; +PANT40TA54 PO; +amiodarone 50MG/ML inj IV ONE; +atropine 0.1mg/ml 10ml syringe ONE; +fentaNYL/PF 50MCG/1 ML 2ML syringe IV ONE; +fentaNYL/PF 50MCG/1 ML 2ML syringe ONE; +midazolam 1 mg/ML 2ml injection ONE; +normal saline 1000ml 1,000 ML IV SCH
== END | disposition home or self-care (01) ==
LOC: SSTAY O 11:09
PROVIDERS: ATTEND Student in an Organized Health Care Education/Training Program
DX: I48.91 Unspecified atrial fibrillation (principal); Z53.8 Procedure and treatment not carried out for other reasons; Z79.899 Other long term (current) drug therapy; I10 Essential (primary) hypertension
CPT/HCPCS: 36415; 80048; 80061; 83695; 85025; 85610; 85730; J0282; J0461; J2250; J3010

== ENCOUNTER 2024-11-02 08:57 | Day surgery (SDC) | payer MEDICARE ==
[2024-10-29 11:18] LABS: MEAN PLATELET VOLUME 7.1 FL (7.4-10.4); RED CELL DISTRIBUTION WIDTH 15.2 % (11.5-14.5)
[2024-10-29 11:27] LABS: APTT 31 SECONDS (22-32); INR 1.2 INR
[2024-10-29 11:35] LABS: CREATININE 1.15 MG/DL (0.40-0.90); TOTAL CARBON DIOXIDE 28.7 MMOL/L (24-32); eGFR 46 ML/MIN
[~2024-11-02] VITALS: Ht 165.1 cm; Wt 60.4 kg
[~2024-11-02 08:57] MED LIST changes: -MIDAZolam 1mg/ml 10ml vial IV ONE; -amiodarone 50MG/ML inj IV ONE; -atropine 0.1mg/ml 10ml syringe ONE; -fentaNYL/PF 50MCG/1 ML 2ML syringe IV ONE; -fentaNYL/PF 50MCG/1 ML 2ML syringe ONE; -midazolam 1 mg/ML 2ml injection ONE; -normal saline 1000ml 1,000 ML IV SCH
[2024-11-02 09:30] VITALS: BP 133/96; PULSE 133; RESP 16; TEMP 97.6; O2SAT 96
[2024-11-02] MEDS ORDERED: MONT-40 PO (09:40)
[2024-11-02] MEDS ORDERED: METO50TA16 PO (09:41)
[2024-11-02] MEDS ORDERED: GABA-530 PO (09:41)
[2024-11-02] MEDS ORDERED: ESTR0.5T29 PO (09:41)
[2024-11-02] MEDS ORDERED: OMEP20CA16 PO (09:41)
[2024-11-02] MEDS ORDERED: POTA-206 PO (09:41)
[2024-11-02] MEDS ORDERED: MIDAZolam 1mg/ml 10ml vial IV ONE (10:05)
[2024-11-02] MEDS ORDERED: fentaNYL/PF 50MCG/1 ML 2ML syringe IV ONE (10:05)
[2024-11-02] MEDS ORDERED: normal saline 1000ml 1,000 ML IV SCH (10:05)
[2024-11-02] MEDS ORDERED: fentaNYL/PF 50MCG/1 ML 2ML syringe ONE (11:48)
[2024-11-02] MEDS ORDERED: amiodarone 50MG/ML inj IV ONE (11:48)
[2024-11-02] MEDS ORDERED: atropine 0.1mg/ml 10ml syringe ONE (11:48)
[2024-11-02] MEDS ORDERED: midazolam 1 mg/ML 2ml injection ONE ×2 (11:48→12:35)
[2024-11-02] MEDS ORDERED: APIX5TAB3 PO (12:07)
--- NOTE | 2024-11-02 12:14 | ELECTROCARDIOGRAPH REPORT ---
[facility] Test Date: 2024-11-02 Test Time: 12:10:11 Pat Name: MG TYSON Department: [facility] O Patient ID: [facility]-[id number] Room: Gender: F Skiver Counter: : [id number] Requested By: RIGOBERTO HENSLEY Order Number: [id number] Reading MD: Measurements Intervals Mark Rate: 74 P: 57 [place]: 172 QRS: -27 QRSD: 87 T: 60 QT: 393 QTc: 436 Interpretive Statements Sinus rhythm Borderline left axis deviation Borderline low voltage, extremity leads Please click the below link to view image of tracing.
[2024-11-02 12:56] VITALS: BP 115/82; PULSE 91; RESP 18; O2SAT 95
[2024-11-02 13:00] VITALS: BP 124/81; PULSE 93; RESP 16; O2SAT 94
[2024-11-02 13:15] VITALS: BP 124/89; PULSE 107; RESP 18; O2SAT 95
[2024-11-02 13:30] VITALS: BP 102/66; PULSE 92; RESP 16; O2SAT 97
--- NOTE | 2024-11-02 15:44 | PROCEDURE NOTE CC ---
Procedure Note Providers to CC CC: Clemente Fuchs MD; PITO HENSLEY MD ~ Description Planned Procedure Cardioversion Indications Symptomatic Atrial Fibrillation Post Operative Dx: Same Type of Anesthesia Moderate Sedation. Description It was confirmed that patient has been taking oral anticoagulation without interruption for at least 4 weeks. The appropriate time-out procedure was performed including proper identification of the patient, physician, procedure, documentation, and there were no safety issues identified. The patient participated actively in this. After sedation was achieved, the patient was placed in the supine position and hands free patches were placed on their chest in the AP-lateral position. 1 synchronized cardioversion was provided at 200 Joules without conversion to normal sinus rhythm. Repeat Cardioversion was again delivered at 200J, with to conversion to normal sinus rhythm. This was confirmed on EKG. Complication: None The patient tolerated the procedure well without complications. RIGOBERTO HENSLEY MD Nov 02, 2024 15:44
== END 2024-11-02 13:40 | disposition home or self-care (01) ==
LOC: SSTAY O 08:57
PROVIDERS: ATTEND Student in an Organized Health Care Education/Training Program
DX: I48.91 Unspecified atrial fibrillation (principal); I48.92 Unspecified atrial flutter; I10 Essential (primary) hypertension; G47.33 Obstructive sleep apnea (adult) (pediatric); Z79.899 Other long term (current) drug therapy
CPT/HCPCS: 36415; 80048; 85025; 85610; 85730; 92960; 93005; J0282; J2250; J3010; J7030; 99152; J0461